=== PATIENT | male | born 1945 | race Caucasian/White ===

== ENCOUNTER 2017-03-09 09:37 | Emergency (ER) | payer MEDICARE ==
[~2017-03-09] VITALS: Ht 162.6 cm; Wt 97.3 kg
[~2017-03-09 09:37] MED LIST: ALLO100T PO; ASPI-1265 PO; ATOR80TA PO; CITA20TA11 PO; CLOP75TA35 PO; GINK60TA2 PO; MAGN500C16 PO; MULT-785 PO; NORCO10T PO; OMEG1CAP54 PO; PSYL480P PO; VITA-104 PO; ZOF4T PO; ZOLP5TAB8 PO; ZOV200C PO
[2017-03-09] MEDS ORDERED: HYDROmorphone 1 mg/ml syringe IV ONE (10:25)
[2017-03-09] MEDS ORDERED: normal saline 1000ML IV soln IVB ONE (10:25)
[2017-03-09] MEDS ORDERED: ketorolac trometh. 30mg/ml inj. IV ONE (10:25)
[2017-03-09 10:36] LABS: BASOPHILS % (AUTO) 0.3 % (0-1); EOSINOPHILS # (AUTO) 0.2 X10'3 (0-0.9); EOSINOPHILS % (AUTO) 1.9 % (0-6); HEMATOCRIT 47.2 % (42.0-52.0); HEMOGLOBIN 16.3 g/dl (14.0-17.9); LYMPHOCYTES # (AUTO) 1.5 X10'3 (1.1-4.8); MEAN CORPUSCULAR HEMOGLOBIN 33.5 PG (27.0-31.0); MEAN CORPUSCULAR HGB CONC 34.5 % (33.0-36.5); MEAN CORPUSCULAR VOLUME 96.9 FL (78-98); MEAN PLATELET VOLUME 7.9 FL (7.4-10.4); MONOCYTES # (AUTO) 0.4 X10'3 (0-0.9); MONOCYTES % (AUTO) 4.6 % (2-12); NEUTROPHILS # (AUTO) 7.4 X10'3 (1.8-7.7); NEUTROPHILS % (AUTO) 77.2 % (42-75); PLATELET COUNT 166 X10'3 (140-440); RED BLOOD COUNT 4.86 X10'6 (4.70-6.10); RED CELL DISTRIBUTION WIDTH 13.6 % (11.5-14.5); WHITE BLOOD COUNT 9.6 X10'3 (4.5-11.0)
[2017-03-09 10:40] LABS: CLARITY,URINE Clear (Clear); COLOR,URINE Dark Yellow (Yellow); GLUCOSE, URINE Negative (Neg); KETONES,URINE Negative (Neg); LEUKOCYTE ESTERASE ,URINE Negative (Neg); NITRITES, URINE Negative (Neg); OCCULT BLOOD,URINE Small (Neg); PROTEIN,URINE Negative (Neg); UROBILINOGEN,URINE 0.2 E.U/dL (0.2-1.0)
[2017-03-09 10:45] LABS: ALANINE AMINOTRANSFERASE 37 U/L (12-78); ALBUMIN 3.4 G/DL (3.4-5.0); ALKALINE PHOSPHATASE 85 IU/L (46-116); ANION GAP 4 (8-16); ASPARTATE AMINO TRANSFERASE 18 U/L (10-37); BILIRUBIN,TOTAL 0.7 MG/DL (0.1-1.0); BLOOD UREA NITROGEN 17 MG/DL (7-18); BUN/CREATININE RATIO 14.3 (5.4-32.0); CHLORIDE 105 MMOL/L (99-107); CREATININE 1.19 MG/DL (0.60-1.10); GLUCOSE 168 MG/DL (70-104); POTASSIUM 4.1 MMOL/L (3.5-5.1); SODIUM 137 MMOL/L (135-145); TOTAL CARBON DIOXIDE 28.3 MMOL/L (24-32); TOTAL PROTEIN 6.7 G/DL (6.4-8.2); eGFR 60 ML/MIN
[2017-03-09 10:50] LABS: UA COLLECTION TYPE VOIDED
[2017-03-09 11:07] LABS: BACTERIA,URINE NONE SEEN /HPF (Neg); CAL OXALATE CRYSTALS 1+ /HPF (NEGATIVE); MUCUS STRANDS MANY /LPF (Neg); RBC,URINE NONE SEEN /HPF (0-2); SQUAMOUS EPITHELIAL CELL,UR FEW /LPF (FEW); WBC,URINE 0-4 /HPF (0-4)
[2017-03-09] MEDS ORDERED: CYCL-1 PO (13:23)
[2017-03-09 13:34] VITALS: BP 115/76
== END 2017-03-09 13:35 | disposition home or self-care (01) ==
LOC: ER 09:39
DX: M54.9 Dorsalgia, unspecified (principal); R10.9 Unspecified abdominal pain; I25.10 Atherosclerotic heart disease of native coronary artery without angina pectoris; F32.9 Major depressive disorder, single episode, unspecified; Z87.442 Personal history of urinary calculi; Z88.6 Allergy status to analgesic agent; Z88.7 Allergy status to serum and vaccine; Z91.09 Other allergy status, other than to drugs and biological substances; Z98.62 Peripheral vascular angioplasty status
CPT/HCPCS: 36415; 76775; 80053; 81001; 84484; 85025; 93005; 96361; 96374; 96375; 99285; J1170; J1885; J7030

== ENCOUNTER 2019-08-02 07:43 | Day surgery (SDC) | payer BC ==
[2019-07-26 11:31] LABS: CLARITY,URINE CLEAR (Clear); COLOR,URINE YELLOW (Yellow); GLUCOSE, URINE NEGATIVE (Neg); KETONES,URINE NEGATIVE (Neg); LEUKOCYTE ESTERASE ,URINE NEGATIVE (Neg); NITRITES, URINE NEGATIVE (Neg); OCCULT BLOOD,URINE NEGATIVE (Neg); PH,URINE 5.5 (4.8-8.0); PROTEIN,URINE NEGATIVE (Neg); UROBILINOGEN,URINE 0.2 E.U/dL (0.2-1.0)
[2019-07-26 11:31] LABS: BASOPHILS % (AUTO) 0.5 % (0-1); EOSINOPHILS # (AUTO) 0.2 X10'3 (0-0.9); LYMPHOCYTES # (AUTO) 1.4 X10'3 (1.1-4.8); LYMPHOCYTES % (AUTO) 17.1 % (21-51); MEAN CORPUSCULAR HEMOGLOBIN 33.4 PG (27.0-31.0); MEAN CORPUSCULAR HGB CONC 33.9 g/dL (33.0-36.5); MEAN CORPUSCULAR VOLUME 98.5 FL (78-98); MEAN PLATELET VOLUME 7.9 FL (7.4-10.4); MONOCYTES # (AUTO) 0.6 X10'3 (0-0.9); MONOCYTES % (AUTO) 6.9 % (2-12); NEUTROPHILS # (AUTO) 5.9 X10'3 (1.8-7.7); NEUTROPHILS % (AUTO) 73.5 % (42-75); PRE OP HEMATOCRIT 46.5 % (42.0-52.0); PRE OP HEMOGLOBIN 15.8 g/dL (14.0-17.9); PRE OP PLATELET COUNT 181 X10'3 (140-440); RED BLOOD COUNT 4.73 X10'6 (4.70-6.10); RED CELL DISTRIBUTION WIDTH 14.3 % (11.5-14.5)
[2019-07-26 11:41] LABS: ALBUMIN 3.3 G/DL (3.4-5.0); ALBUMIN/GLOBULIN RATIO 1.1 (1.1-1.5); ALKALINE PHOSPHATASE 68 IU/L (46-116); BLOOD UREA NITROGEN 14 MG/DL (7-18); BUN/CREATININE RATIO 12.4 (5.4-32.0); CALCIUM 8.8 MG/DL (8.5-10.1); CHLORIDE 109 MMOL/L (99-107); CREATININE 1.13 MG/DL (0.60-1.10); PRE OP ALT 39 U/L (30-65); PRE OP ANION GAP 4 (8-16); PRE OP AST 20 U/L (10-37); PRE OP BILIRUB, TOTAL 0.5 MG/DL (0.0-1.0); PRE OP GLUCOSE 90 MG/DL (70-104); PRE OP POTASSIUM 4.5 MMOL/L (3.4-5.1); PRE OP SODIUM 143 MMOL/L (135-145); TOTAL CARBON DIOXIDE 29.6 MMOL/L (24-32); TOTAL PROTEIN 6.4 G/DL (6.4-8.2); eGFR 63 ML/MIN
[2019-07-26 11:42] LABS: UA COLLECTION TYPE CLN CATCH MIDSTREAM
[2019-08-02] VITALS (11 sets, daily range): BP systolic 115–138; BP diastolic 64–80
[~2019-08-02] VITALS: Ht 165.1 cm; Wt 93.0 kg
[~2019-08-02 07:43] MED LIST changes: +CARV6.253 PO; +CHOL20004 PO; -CITA20TA11 PO; +CITA20TA28 PO; -CLOP75TA35 PO; +FLO0.4C PO; -GINK60TA2 PO; -NORCO10T PO; +OMEP40CA13 PO; -PSYL480P PO; +VIT C PO; -ZOF4T PO; -ZOLP5TAB8 PO; +cefazolin/dext.iso 2gm/50ml 50 ML IV ONE; +famotidine 20mg tablet PO ONE; +ringers solution, lacted 1,000 ML IV SCH
[2019-08-02] MEDS ORDERED: morphine 2 MG/ML inj. syringe IV PRN (08:25)
[2019-08-02] MEDS ORDERED: ringers solution, lacted 1,000 ML IV SCH (08:25)
[2019-08-02] MEDS ORDERED: ondansetron/PF 4mg/2ml inj IV PRN (08:25)
[2019-08-02] MEDS ORDERED: labetalol 20mg/4ml (5mg/ml) syringe IV PRN (08:25)
[2019-08-02] MEDS ORDERED: morphine 4 MG/ML inj SYRINge IV PRN (08:25)
[2019-08-02] MEDS ORDERED: hydrALAZINE 20mg/ml inj. IV PRN (08:25)
[2019-08-02] MEDS ORDERED: fentaNYL/PF 50MCG/1 ML 2ML syringe IV PRN ×2 (08:25)
[2019-08-02] MEDS ORDERED: BUPIVAcaine/PF 2.5 mg/ml (0.25%) 30ml vial ONE (09:54)
[2019-08-02] MEDS ORDERED: LIDOcaine 2% (20mg/ml) 5ml vial ONE (09:56)
[2019-08-02] MEDS ORDERED: fentaNYL/PF 50MCG/1 ML 2ML syringe ONE (09:56)
[2019-08-02] MEDS ORDERED: midazolam 2 mg/2 ml injection ONE (09:56)
[2019-08-02] MEDS ORDERED: propofol inj 20 ML IV ONE (09:57)
[2019-08-02] MEDS ORDERED: ondansetron/PF 4mg/2ml inj ONE (09:57)
[2019-08-02] MEDS ORDERED: rocuronium 10mg/ml inj IV ONE (09:57)
[2019-08-02] MEDS ORDERED: sevoflurane 250ml liquid IH ONE (10:00)
[2019-08-02] MEDS ORDERED: neostigmine methylsulfate 1 MG/ML 10ml vial ONE (10:00)
[2019-08-02] MEDS ORDERED: glycopyrrolate 0.2mg/ml inj ONE (10:00)
[2019-08-02] MEDS ORDERED: dexamethasone sod phosphate 10mg/ml inj ONE (10:00)
[2019-08-02] MEDS ORDERED: atropine 0.4 mg/ml 20ml vial ONE (10:36)
--- NOTE | 2019-08-02 11:08 | NUR ---
Received from OR via [facility], accompanied by Anesthesiologist DR JONES and report given by Anesthesiologist. PT DROWSY, NO S/S OF DISTRESS/DISCOMFORT, ABDOMEN W/ 2 LAP SITES W/BANDAIDS CDI, OJEDA CATHETER W/YELLOW URINE TO GRAVITY DRAINAGE. Addendum: 08/02/19 at 1712 by Jing Whitman RN Amended: Links added.
--- NOTE | 2019-08-02 13:08 | NUR ---
D/C INSTRUCTIONS GIVEN AND GONE OVER W/PT AND PTS WHOM VERBALIZED UNDERSTANDING, OJEDA CATHETER INSTRUCTIONS GONE OVER WELL, PT TO FOLLOW UP W/DR PAEZ TOMORROW FOR REMOVAL OF CATHETER. PT D/CD TO HOME VIA W/C TO PRIVATE VEHICLE W/O INCIDENT. Addendum: 08/02/19 at 1717 by Jing Whitman RN Amended: Links added.
== END 2019-08-02 13:08 | disposition home or self-care (01) ==
LOC: PAS 07:43
PROVIDERS: ATTEND Surgery
DX: K40.90 Unilateral inguinal hernia, without obstruction or gangrene, not specified as recurrent (principal); D17.6 Benign lipomatous neoplasm of spermatic cord; I25.10 Atherosclerotic heart disease of native coronary artery without angina pectoris; N40.0 Benign prostatic hyperplasia without lower urinary tract symptoms; G47.33 Obstructive sleep apnea (adult) (pediatric); M10.9 Gout, unspecified; M19.90 Unspecified osteoarthritis, unspecified site; I10 Essential (primary) hypertension; K21.9 Gastro-esophageal reflux disease without esophagitis; G43.909 Migraine, unspecified, not intractable, without status migrainosus; F32.9 Major depressive disorder, single episode, unspecified; E66.9 Obesity, unspecified; Z68.34 Body mass index [BMI] 34.0-34.9, adult; Z79.899 Other long term (current) drug therapy; Z88.7 Allergy status to serum and vaccine; Z98.890 Other specified postprocedural states; Z11.59 Encounter for screening for other viral diseases; Z87.442 Personal history of urinary calculi; Z95.5 Presence of coronary angioplasty implant and graft; Z86.73 Personal history of transient ischemic attack (TIA), and cerebral infarction without residual deficits
CPT/HCPCS: 36415; 49650; 80053; 81003; 82948; 85025; C1727; C1781; J0461; J1100; J2001; J2250; J2405; J2704; J2710; J3010; J3490; U0003; A4215; A4314; A4618; A6258; J7120